=== PATIENT | female | born 1930 | race Caucasian/White ===

== ENCOUNTER 2018-01-15 10:56 | Emergency (ER) | payer SELFPAY ==
[~2018-01-15] VITALS: Ht 162.6 cm; Wt 51.8 kg
[2018-01-15 11:22] VITALS: Ht 162.6 cm; Wt 51.8 kg
[2018-01-15] MEDS ORDERED: ASPIRIN81 MG PO (11:28)
[2018-01-15] MEDS ORDERED: LASIX80 MG PO (11:29)
[2018-01-15] MEDS ORDERED: HYDRALAZINE HC100 MG PO (11:29)
[2018-01-15] MEDS ORDERED: XALATAN 0.0052.5 ML EACH EYE (11:29)
[2018-01-15] MEDS ORDERED: PRINIVIL20 MG PO (11:30)
[2018-01-15] MEDS ORDERED: NIFEDIPINE ER60 MG PO (11:30)
[2018-01-15] MEDS ORDERED: TIROSINT137 MCG PO (11:30)
[2018-01-15] MEDS ORDERED: FERRIC CITRATE210 MG PO (11:31)
[2018-01-15] MEDS ORDERED: PLAVIX75 MG PO (11:31)
[2018-01-15] MEDS ORDERED: TIMOPTIC 0.5 % O5 ML EACH EYE (11:32)
[2018-01-15] MEDS ORDERED: SENNA LAXATIVE8.6 MG PO (11:32)
[2018-01-15 13:57] LABS: ANION GAP 16.8 mmol/L (8-16); POTASSIUM - SERUM 4.8 mmol/L (3.5-5.1)
[2018-01-15 14:44] VITALS: BP 177/44
== END 2018-01-15 14:45 | disposition home or self-care (01) ==
LOC: D.ER 10:56
PROVIDERS: Family Medicine
DX: I12.0 Hypertensive chronic kidney disease with stage 5 chronic kidney disease or end stage renal disease (principal); N18.6 End stage renal disease; Z99.2 Dependence on renal dialysis; E11.9 Type 2 diabetes mellitus without complications